=== PATIENT | male | born 1970 | race Two or more races ===

== ENCOUNTER 2025-02-26 09:34 | Emergency (ER) | payer MEDICAID, SELFPAY ==
[2025-02-26 10:08] VITALS: BP 139/86; PULSE 78; RESP 18; TEMP 37.4; O2SAT 93
[2025-02-26 10:28] VITALS: BMI 38.3
--- NOTE | 2025-02-26 10:46 | XR_ITS ---
Examination: Knee, left , 3 views Technique: Knee AP, lateral, oblique 3 views Date and time of exam: February 26, 2025 at 1050 hrs. Indications: Injury to the knee 2 weeks ago with persistent knee pain Findings: No fracture or dislocation Moderate knee effusion No opaque foreign body Minimal tricompartment osteoarthritis Impression: No acute fracture Moderate knee effusion
--- NOTE | 2025-02-26 10:47 | EDNOTE_ITS ---
<Statement entered by Leigh Watson MD - 02/26/25 17:34> As co-signing physician, I was present and available for consult prn. I concur with the plan and care as documented by the midlevel provider. ED General RME/HPI General Chief complaint: Extremity Injury, Lower Stated complaint: LEFT KNEE PAIN Time Seen by Provider: 02/26/25 10:44 Arrival date/time: 02/26/25 09:34 CC: Left knee pain after a pop while climbing up a ladder 18 days ago was seen by PCP 8 days ago told that he had a strain given to medications with the pain has not returned in fact its gotten worse. The patient states he is able to bear weight but it is painful. Patient denies numbness or tingling in the lower extremity denies fall repetitive motion or trauma. Related Data Allergies Allergy/AdvReac Type Severity Reaction Status Date / Time No Known Allergies Allergy Verified 02/26/25 09:36 Review of Systems Review of Systems Narrative Review of Systems: GEN: No fever, no chills, no weight loss EYES: No discharge, no visual changes, no pain HEENT: No ear pain, no congestion, no sore throat PULM: No shortness of breath, no cough, no congestion CV: No chest pain, no dyspnea on exertion, no palpitations GI: No nausea, no vomiting, no diarrhea, no pain, no constipation : No frequency, no urgency, no dysuria MUSC/SKEL: No joint pain, no back pain SKIN: No rash PSYCH: No hallucinations, no depression HEME/LYMPH: No easy bleeding or bruising tendencies NEURO: No weakness, no headache Past Medical History Social History SMOKING STATUS: Never smoker ED Exam Narrative Physical exam: [General: Obese not in cot no acute distress Head normocephalic HEENT: Within acceptable limits Neck is supple nontender Chest equal chest rise nontender to palpation Respiratory: Clear to auscultation no wheezes crackles or rubs CV: Rate rhythm is regular no murmurs rubs or clicks Abdomen is distended secondary to body habitus soft nontender no masses positive bowel sounds all 4 quadrants Back: No CVA tenderness no spinous process tenderness from cervical spine thoracic and lumbar spine Skin: Intact no petechiae rash induration ulceration or crepitus Extremities: Left lower extremity, flexion extension of the knee, there is no significant edema erythema or exudate. There is mild tenderness to the superior portion of the patella. No lateral laxity. Negative anterior drawer test. Moving all other extremities against resistance cap refill less than 2 seconds neurosensory intact Neuro: Awake alert oriented x3 Glascow coma 15 no focal deficits] Course Quality Measures none Orders Category Date Time Status XR knee LT 3V Stat Exams 02/26/25 10:46 Completed Vital Signs Vital signs: Vital Signs Temperature 99.3 F 02/26/25 10:08 Pulse Rate 78 02/26/25 10:08 Respiratory Rate 18 02/26/25 10:08 Blood Pressure 139/86 H 02/26/25 10:08 Pulse Oximetry (%) 93 L 02/26/25 10:08 Oxygen Delivery Method Room Air 02/26/25 10:08 [facility] Patient data External records reviewed:: [facility] previous records Clinical information provided by:: patient Social determinants that could affect healthcare access:: none Patient has the following chronic illnesses:: None How is presenting disease/condition affected by chronic disease/condition?: uneffected by Evaluation data The following diagnostics were reviewed and interpreted by me:: radiology exam(s) Lab and/or radiology exams considered but not ordered:: Knee x-rays interpreted by me read by radiology shows a moderate knee effusion no acute fracture. Interpretation Summary: Suspicious for effusion versus some kind of ligament tear patient is recommended for an outpatient MRI. Medications Medications considered but not ordered:: None Medication administrations:: None Consultations Consultation(s) initiated? (list below): No Diagnosis Differential Diagnosis ED Complaint MDM: Knee fracture knee effusion knee pain Most likely diagnosis given after review of the tests above:: Knee effusion knee pain Admission Indicated Admission indicated?: not indicated Explain why admission is indicated or not indicated:: Stable for outpatient follow-up Admission Request Was there a request for admission?: No Disposition Plan Disposition Plan: Discharge Discharge Attestation Discharge Attestation: The patient and all family members were given an opportunity to ask questions and understood the discharge instructions. Discharge instructions specifically effects, indications for sooner follow up or return to the emergency department, and the expected course of current diagnosis. Patient condition: Stable Medical Decision Making Differential Diagnosis Differential Diagnosis: Knee fracture knee effusion knee pain Discharge Plan Plan Patient Disposition: HOME (Self Care) Patient condition on transfer: Stable Prescriptions/Referrals Referrals: Jose Chris MD [Physician] - In 1 week No Primary/Family,Physician [Primary Care Provider] - In 1 week Problem List Clinical Impression: Effusion of knee, Knee pain Patient/Caregiver Discharge Instructions Education Materials: ED MIKE Wrap, ED Knee Pain of Uncertain Cause Print Language: Beninese Stand Alone Forms: Ghislaine Award Info., Work/School Release, Patient Portal Info Letter PA/TOMBSTONE SETTER Supervising Physician PA/TOMBSTONE SETTER Supervising Physician: Juan Alberto Heard ENP
== END 2025-02-26 11:53 | disposition home or self-care (01) ==
PROVIDERS: Emergency Provider Emergency Medicine
DX: M25.462 Effusion, left knee (principal)
CPT/HCPCS: 73562; 99283